=== PATIENT | male | born 1965 | race Hispanic/Latino ===

== ENCOUNTER 2018-10-12 16:50 | Emergency (ER) | payer MEDICARE ==
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
[2018-10-12 17:04] VITALS: BP 126/91
[2018-10-12] MEDS ORDERED: IBUPROFEN ONE (17:04)
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
[2018-10-12] MEDS ORDERED: IBUPROFEN PO ONE (23:12)
== END 2018-10-12 20:30 | disposition home or self-care (01) ==
LOC: ED 16:50
DX: S16.1XXA Strain of muscle, fascia and tendon at neck level, initial encounter (principal); M25.512 Pain in left shoulder; M25.571 Pain in right ankle and joints of right foot; M54.5 Low back pain; F17.200 Nicotine dependence, unspecified, uncomplicated; V89.0XXA Person injured in unspecified motor-vehicle accident, nontraffic, initial encounter; Y93.89 Activity, other specified; Y99.8 Other external cause status; Y92.410 Unspecified street and highway as the place of occurrence of the external cause
CPT/HCPCS: 72040; 72100; 99283